=== PATIENT | male | born 1965 | race Caucasian/White ===

== ENCOUNTER 2018-03-31 18:46 | Emergency (ER) | payer BC ==
[~2018-03-31] VITALS: Ht 180.3 cm; Wt 113.4 kg
[2018-03-31 18:57] VITALS: BP_SYST 164
[2018-03-31] MEDS: KETOROLAC TROMETHAMINE 60 MG/2 ML VIAL IM ONE (20:06)
[2018-03-31 20:20] VITALS: BP_SYST 150
== END 2018-03-31 20:20 | disposition home or self-care (01) ==
LOC: SED 18:46
DX: M53.3 Sacrococcygeal disorders, not elsewhere classified (principal); R03.0 Elevated blood-pressure reading, without diagnosis of hypertension; Z86.79 Personal history of other diseases of the circulatory system
CPT/HCPCS: 96372; 99283; J1885

== ENCOUNTER 2018-05-02 22:21 | Emergency (ER) | payer BC ==
[~2018-05-02] VITALS: Ht 180.3 cm; Wt 113.4 kg
[2018-05-02 22:48] VITALS: BP_SYST 144
[2018-05-03 01:10] VITALS: BP_SYST 128
== END 2018-05-03 01:10 | disposition home or self-care (01) ==
LOC: SED 22:21
DX: H57.89 Other specified disorders of eye and adnexa (principal)
CPT/HCPCS: 99282